=== PATIENT | male | born 1985 | race American Indian/Alaskan Native ===

== ENCOUNTER 2018-07-30 08:59 | Emergency (ER) | payer SELFPAY ==
[2018-07-30 09:08] VITALS: BP 120/82
--- NOTE | 2018-07-30 09:34 | Emergency Department Report ---
Chief Complaint: Weakness Stated Complaint: FEELING WEAK Time Seen by Provider: 07/30/18 09:23 - HPI History of Present Illness: Mr. Hummel is a very pleasant 33-year-old male who desires to be evaluated for sexual transmitted diseases. He had a sexual encounter with a new contact while traveling between [place] and [facility]. Currently he does not have a medical emergency which needs further treatment and evaluation. I recommended STI testing when he returns to his home time especially HIV testing. He currently is symptom-free. He does not genitourinary symptoms or pain. Medical screening exam performed and completed. - Exam Vital Signs: Vital Signs 07/30/18 09:05 Temperature 98.1 F Pulse Rate 84 Respiratory 18 Rate Blood Pressure 120/82 [Left] O2 Sat by Pulse 98 Oximetry MSE screening note: Focused history and physical exam performed. Due to findings the following was ordered: ED Disposition for MSE Clinical Impression: Encounter for medical screening examination Disposition: Z-07 MED SCREENING EXAM-LEFT Is pt being admited?: No Does the pt Need Aspirin: No Condition: Stable
== END 2018-07-30 09:40 | disposition left against medical advice (07) ==
LOC: ED 08:59
DX: Z00.00 Encounter for general adult medical examination without abnormal findings (principal)
CPT/HCPCS: 99281